=== PATIENT | male | born 1990 | race Caucasian/White ===

== ENCOUNTER 2020-03-20 11:06 | Emergency (ER) | payer BC ==
[2020-03-20] MEDS ORDERED: diphenhydrAMINE 25 MG CAP ONE ×2 (11:19→11:24)
[2020-03-20] MEDS ORDERED: predniSONE 20 MG TAB ONE ×2 (11:19→11:24)
== END 2020-03-20 11:44 | disposition home or self-care (01) ==
LOC: ERS 11:06
DX: T63.461A Toxic effect of venom of wasps, accidental (unintentional), initial encounter (principal); I10 Essential (primary) hypertension; Z79.899 Other long term (current) drug therapy
CPT/HCPCS: 99282; J7512; Q0163